=== PATIENT | female | born 1985 | race Two or more races ===

== ENCOUNTER 2018-09-18 08:35 | Emergency (ER) | payer SELFPAY ==
[2018-09-18 08:42] VITALS: BP 124/86; PULSE 83; TEMP 98.2; BMI 21.2
[2018-09-18] MEDS ORDERED: DIPHTH,PERTUSS(ACELL),TET 0.5 ML DISP.SYRIN IM ONE (09:48)
--- NOTE | 2018-09-18 10:02 | PDOC ---
History of Present Illness - General Chief Complaint: Laceration Stated Complaint: LACERATION Time Seen by Provider: 09/18/18 08:51 History Source: Patient Exam Limitations: No Limitations - History of Present Illness Initial Comments: 09/18/18 10:02 Was using a knife to cut some turkey this morning when she slipped causing an avulsion to the MCP of right thumb dorsum Occurred: reports: this morning Severity: reports: mild, moderate Method of Injury: Yes: direct blow Associated Symptoms (Fall): denies symptoms Past History - Travel Traveled outside of the country in the last 30 days: No Close contact w/someone who was outside of country & ill: No - Past Medical History Allergies/Adverse Reactions: Allergies Allergy/AdvReac Type Severity Reaction Status Date / Time No Known Allergies Allergy Verified 09/18/18 10:46 Home Medications: Ambulatory Orders NK [No Known Home Medication] 09/18/18 COPD: No - Immunization History Immunization Up to Date: Yes - Suicide/Smoking/Psychosocial Hx Smoking History: Never smoked Information on smoking cessation initiated: No Hx Alcohol Use: No Drug/Substance Use Hx: No Substance Use Type: None Review of Systems - Review of Systems Able to Perform ROS?: Yes Is the patient limited Albanian proficient: Yes Constitutional: Yes: See HPI. No: Symptoms Reported HEENTM: No: Symptoms Reported Musculoskeletal: Yes: Symptoms Reported, See HPI, Joint Pain Integumentary: Yes: Symptoms Reported, See HPI, Other (laceration to the dorsum of right MCP thumb) All Other Systems: Reviewed and Negative *Physical Exam - Vital Signs Last Vital Signs Temp Pulse Resp BP Pulse Ox 98.2 F 83 16 124/86 100 09/18/18 08:39 09/18/18 08:39 09/18/18 08:39 09/18/18 08:39 09/18/18 08:39 - Physical Exam General Appearance: Yes: Nourished, Appropriately Dressed, Apparent Distress, Mild Distress HEENT: positive: BENIGNO, TMs Normal Neck: positive: Supple. negative: Lymphadenopathy (R), Lymphadenopathy (L) Respiratory/Chest: positive: Lungs Clear, Normal Breath Sounds Musculoskeletal: negative: Normal Inspection Extremity: positive: Normal Capillary Refill, Normal Range of Motion (strong flexion and extension against resistance to right thumb, tendon is exposed but no interruption or defects noted. 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 NML intact, Fully Oriented, Alert, Normal Mood/ Affect, Normal Response, Motor Strength 5/5 Procedures - Laceration/Wound Repair Right Finger Wound Length: to 2.5 cm Wound Explored: clean Wound's Depth, Shape: into muscle Irrigated w/ Saline: Yes Betadine Prep: Yes Anesthesia: 1% Lidocaine Wound Repaired With: Sutures Suture Size/Type: 5:0, proline Number of Sutures: 5 Layer Closure: No Sterile Dressing Applied: Yes Splint Applied: Yes Type of Splint Applied: aluminum foam Progress Note - Progress Note Progress Note: Avulsion laceration, *DC/Admit/Observation/Transfer Diagnosis at time of Disposition: Finger laceration Qualifiers: Encounter type: initial encounter Finger: thumb Damage to nail status: without damage Foreign body presence: without foreign body Laterality: right Qualified Code(s): S61.011A - Laceration without foreign body of right thumb without damage to nail, initial encounter - Discharge Dispostion Disposition: HOME Condition at time of disposition: Stable Decision to Admit order: No - Referrals - Patient Instructions Printed Discharge Instructions: DI for Laceration Repair Additional Instructions: Rest, elevate, avoid strenuous activity or heavy lifting until sutures are removed Leave dressing on for the next 24 hours, Then may remove dressing gently and wash area with soap and water. Reapply bacitracin ointment and dressing daily for the next 5 days On day #6 keep the wound protected and cover as needed until sutures are removed allowing wound to start to dry May use Tylenol or Motrin for pain relief Suture removal in : 10 -14 Days - Post Discharge Activity Forms/Work/School Notes: Back to Work
[2018-09-18] MEDS ORDERED: IBUPROFEN 400 MG TABLET (FP) PO ONE ×2 (10:16→10:20)
== END 2018-09-18 11:42 | disposition home or self-care (01) ==
LOC: JERFT 08:35
PROC: 0HQFXZZ Repair Right Hand Skin, External Approach (ICD-10-PCS; principal; 2018-09-18)
PROC: 3E0234Z Introduction of Serum, Toxoid and Vaccine into Muscle, Percutaneous Approach (ICD-10-PCS; 2018-09-18)
DX: S61.011A Laceration without foreign body of right thumb without damage to nail, initial encounter (principal); W26.0XXA Contact with knife, initial encounter; Y93.G1 Activity, food preparation and clean up; Y92.89 Other specified places as the place of occurrence of the external cause
CPT/HCPCS: 90715; 99281-25

== ENCOUNTER 2021-06-30 07:15 | Emergency (ER) | payer OTHER ==
[2021-06-30 07:31] VITALS: BP 110/72; PULSE 75; TEMP 98.2; BMI 21.6
[2021-06-30] MEDS ORDERED: FAMOTIDINE 20 MG TABLET PO ONE (07:42)
[2021-06-30] MEDS ORDERED: FAMOTIDINE 20 MG TABLET ONE (07:45)
== END 2021-06-30 09:06 | disposition home or self-care (01) ==
LOC: FER 07:15
DX: L23.9 Allergic contact dermatitis, unspecified cause (principal); N76.1 Subacute and chronic vaginitis
CPT/HCPCS: 81003; 87086; 99283-25

== ENCOUNTER 2021-08-20 14:00 | Emergency (ER) | payer OTHER ==
[2021-08-20 14:36] VITALS: BP 115/67; PULSE 85; TEMP 99.8; BMI 21.2
== END 2021-08-20 15:03 | disposition home or self-care (01) ==
LOC: FER 14:00
DX: B82.9 Intestinal parasitism, unspecified (principal); L29.9 Pruritus, unspecified
CPT/HCPCS: 99283-25

== ENCOUNTER 2021-10-29 14:04 | Emergency (ER) | payer OTHER ==
[2021-10-29 14:51] VITALS: BP 108/74; PULSE 80; TEMP 98; BMI 20.9
[2021-10-29 15:17] LABS: HCG,QUALITATIVE URINE Negative
[2021-10-31 09:07] LABS: SARS-CoV-2 NAA Detected (Not Detected)
== END 2021-10-29 16:01 | disposition home or self-care (01) ==
LOC: FER 14:04
DX: J06.9 Acute upper respiratory infection, unspecified (principal)
CPT/HCPCS: 81003; 84703; 87086; 87804; 99283-25; C9803; U0003; U0005